=== PATIENT | female | born 1960 | race Two or more races ===

== ENCOUNTER 2019-12-28 15:07 | Inpatient (IN) | payer MEDICAID ==
[~2019-12-28] VITALS: Ht 165.1 cm; Wt 112.0 kg
[2019-12-28] MEDS ORDERED: ACETAMINOPHEN 325MG TABLET PO STA (15:40)
[2019-12-28] MEDS ORDERED: SODIUM CHLORIDE 0.9% 1,000 ML IV ONE ×2 (15:45→19:45)
[2019-12-28] MEDS ORDERED: PIPERACILLIN/TAZ 3.375G PREMIX 50 ML IV ONE (16:30)
[2019-12-28] MEDS ORDERED: DEXAMETHASONE 10 MG/ML VIAL IV ONE (16:30)
[2019-12-28 16:38] LABS: CHLORIDE 99 mEq/L (98-107)
[2019-12-28 16:43] LABS: BASOPHILS % 0.2 % (0.0-2.0); HEMATOCRIT. 39.2 % (36.0-48.0); HEMOGLOBIN. 13.7 g/dL (12.0-16.0); MEAN CORPUSCULAR HEMOGLOBIN 30.4 pg (28.0-32.0); MEAN CORPUSCULAR VOLUME 86.7 fL (81.0-99.0); MEAN PLATELET VOLUME 7.5 fl (7.4-10.4); MONOCYTES % 9.3 % (2.0-8.0); NEUTROPHILS % 82.5 % (40.0-76.0); PLATELET 337 x1000/uL (130-400); RED BLOOD CELL COUNT 4.53 mill/uL (4.2-5.4); RED CELL DISTRIBUTION WIDTH 12.8 % (11.6-14.6)
[2019-12-28 16:46] LABS: D-DIMER 1.12 mg/L FEU (<0.50); PROTHROMBIN TIME 10.3 sec (9.6-11.0)
[2019-12-28] MEDS ORDERED: BACITRACIN ZINC OINT UDPKT TOP ONE (17:15)
[2019-12-28] MEDS ORDERED: DOCUSATE SODIUM 100MG CAPSULE PO PRN (20:45)
[2019-12-28] MEDS ORDERED: ONDANSETRON HCL 4MG/2ML INJ IV PRN (20:45)
[2019-12-28] MEDS ORDERED: IPRATROPIUM/ALBUTEROL 0.5-3(2.5)MG/3ML NEB NEB PRN (20:45)
[2019-12-28] MEDS ORDERED: MAGNESIUM/ALUMINUM HYDROXIDE/SIMETHICONE 30ML UDC PO PRN (20:45)
[2019-12-28] MEDS ORDERED: HYDROCODONE/ACETAMINOPHEN 10/325MG TABLET PO PRN (20:45)
[2019-12-28] MEDS ORDERED: CLONIDINE 0.1MG TABLET PO PRN (20:45)
[2019-12-28] MEDS ORDERED: CEFTRIAXONE 1 G PREMIX 50 ML IV SCH (21:00)
[2019-12-28] MEDS ORDERED: AZITHROMYCIN 500 MG in DEXT 5% WATER 250 ML IV SCH (21:00)
[2019-12-28] MEDS ORDERED: HEPARIN 5000 UNITS/ML VIAL SUBCUT SCH (21:00)
[2019-12-28 22:09] LABS: HEPATITIS A AB IGM NEGATIVE (NEGATIVE)
[2019-12-28] MEDS: HEPARIN 5000 UNITS/ML VIAL SUBCUT SCH (22:53)
[2019-12-28 23:13] LABS: HEPATITIS B SURFACE ANTIGEN REACTIVE PEND CONFIR
[2019-12-28 23:17] LABS: CREATINE KINASE MB FRACTION 8.2 ng/mL (0.5-3.6)
[2019-12-29 04:49] LABS: CHLORIDE 104 mEq/L (98-107)
[2019-12-29 04:52] LABS: BASOPHILS % 0.7 % (0.0-2.0); HEMATOCRIT. 39.3 % (36.0-48.0); HEMOGLOBIN. 13.3 g/dL (12.0-16.0); LYMPHOCYTES % 8.4 % (20.0-50.0); MEAN CORPUSCULAR HEMOGLOBIN 29.8 pg (28.0-32.0); MEAN CORPUSCULAR VOLUME 88.4 fL (81.0-99.0); MEAN PLATELET VOLUME 7.4 fl (7.4-10.4); NEUTROPHILS % 86.9 % (40.0-76.0); PLATELET 328 x1000/uL (130-400); RED BLOOD CELL COUNT 4.45 mill/uL (4.2-5.4); RED CELL DISTRIBUTION WIDTH 12.8 % (11.6-14.6)
[2019-12-29 04:56] LABS: LDL CHOLESTEROL 106 mg/dL (5-100)
[2019-12-29 04:57] LABS: HDL CHOLESTEROL 41 mg/dL (40-59)
[2019-12-29 05:00] LABS: CREATINE KINASE MB FRACTION 14.5 ng/mL (0.5-3.6)
[2019-12-29 05:09] LABS: CREATINE KINASE 1350 IU/L (26-192)
[2019-12-29] MEDS: HEPARIN 5000 UNITS/ML VIAL SUBCUT SCH ×3 (07:03→21:46)
[2019-12-29 08:30] VITALS: BP 113/58
[2019-12-29 09:00] VITALS: BP 111/58
[2019-12-29] MEDS: PANTOPRAZOLE 40MG DR TABLET PO SCH (10:11)
[2019-12-29] MEDS ORDERED: POTASSIUM CHLORIDE 20MEQ TABLET SR PO NR (10:15)
[2019-12-29] MEDS ORDERED: LISI-186 PO (10:50)
[2019-12-29] MEDS ORDERED: HYDR25TA PO (10:51)
[2019-12-29] MEDS ORDERED: ATEN-42 PO (10:53)
[2019-12-29] MEDS ORDERED: MECL-183 PO (10:56)
[2019-12-29] MEDS ORDERED: CHOL200077 MT (10:56)
[2019-12-29] MEDS ORDERED: GABA-531 PO (10:56)
[2019-12-29] MEDS ORDERED: ACET650T37 PO (10:58)
[2019-12-29] MEDS ORDERED: CHOL40002 PO (11:00)
[2019-12-29] MEDS: SODIUM CHLORIDE 0.9% 1,000 ML IV SCH ×3 (11:34→22:17)
[2019-12-29 11:52] LABS: BG BASE EXCESS -3.7 mmol/L (-2.0-2.0); BG CARBOXYHEMOGLOBIN 0.4 % (0.5-1.5); BG DEOXYHEMOGLOBIN 12.3 % (0.0-5.0); BG FRACTION INSPIRED OXYGEN 21; BG HCO3 ACT 18.8 mmol/L (22.0-26.0); BG METHEMOGLOBIN 0.2 % (0.0-1.5); BG OXYGEN SATURATION 87.6 % (92.0-98.5); BG OXYHEMOGLOBIN 87.1 % (94.0-97.0); BG PCO2 27.3 mmHg (35.0-45.0); BG PH 7.455 (7.350-7.450); BG PO2 53.9 mmHg (75.0-100.0); BG SAMPLE SITE RIGHT RADIAL; BG TOTAL HEMOGLOBIN 13.8 g/dL (12.0-18.0); BG VENT MODE ROOM AIR
[2019-12-29 12:00] VITALS: BP 110/46
[2019-12-29] MEDS: AZITHROMYCIN 500 MG in DEXT 5% WATER 250 ML IV SCH (15:00)
[2019-12-29 16:00] VITALS: BP 102/65
[2019-12-29] MEDS: CEFTRIAXONE 1,000 MG in DEXTROSE 5% WATER 50 ML IV SCH (18:23)
[2019-12-29] MEDS: DEXAMETHASONE 10 MG/ML VIAL IV SCH (18:23)
[2019-12-29 19:11] LABS: CREATINE KINASE 1184 IU/L (26-192)
[2019-12-29 20:00] VITALS: BP 96/49
[2019-12-29] MEDS ORDERED: *PATIENT'S OWN MEDICATION STORAGE XX SCH (21:45)
[2019-12-29] MEDS: GUAIFENESIN 200MG/10ML SUGAR FREE UDC PO PRN (23:45)
[2019-12-30] VITALS: BP_SYST 91; BP_DIAS 32; BP_DIAS 52
[2019-12-30 04:00] VITALS: BP 115/54
[2019-12-30] MEDS: HEPARIN 5000 UNITS/ML VIAL SUBCUT SCH ×3 (05:45→20:45)
[2019-12-30] MEDS: PANTOPRAZOLE 40MG DR TABLET PO SCH (05:45)
[2019-12-30 07:43] LABS: HEMATOCRIT. 37.3 % (36.0-48.0); HEMOGLOBIN. 12.8 g/dL (12.0-16.0); MEAN CORPUSCULAR HEMOGLOBIN 30.1 pg (28.0-32.0); MEAN CORPUSCULAR VOLUME 87.4 fL (81.0-99.0); MEAN PLATELET VOLUME 7.4 fl (7.4-10.4); PLATELET 384 x1000/uL (130-400); RED BLOOD CELL COUNT 4.26 mill/uL (4.2-5.4); RED CELL DISTRIBUTION WIDTH 12.9 % (11.6-14.6)
[2019-12-30 08:00] VITALS: BP 107/71
[2019-12-30 08:07] LABS: HBSAG SCREEN Negative (Negative); HIV SCREEN 4G Non Reactive (Non Reactive)
[2019-12-30] MEDS: DEXAMETHASONE 10 MG/ML VIAL IV SCH (09:06)
[2019-12-30 09:10] LABS: CHLORIDE 110 mEq/L (98-107)
[2019-12-30 09:20] LABS: PHOSPHORUS 3.9 mg/dL (2.5-4.9)
[2019-12-30 12:00] VITALS: BP 130/55
[2019-12-30] MEDS: CEFTRIAXONE 1,000 MG in DEXTROSE 5% WATER 50 ML IV SCH (12:27)
[2019-12-30] MEDS: SODIUM CHLORIDE 0.9% 1,000 ML IV SCH ×2 (12:27→20:44)
[2019-12-30] MEDS ORDERED: POTASSIUM CHLORIDE 20MEQ TABLET SR PO NR (12:30)
[2019-12-30] MEDS: AZITHROMYCIN 500 MG in DEXT 5% WATER 250 ML IV SCH (13:51)
[2019-12-30 15:03] LABS: PLATELET ESTIMATE NORMAL
[2019-12-30 16:00] VITALS: BP 122/68
[2019-12-30 20:00] VITALS: BP 104/44
[2019-12-31] VITALS: BP 109/62
[2019-12-31 04:00] VITALS: BP 113/62
[2019-12-31] MEDS: HEPARIN 5000 UNITS/ML VIAL SUBCUT SCH ×3 (06:36→21:48)
[2019-12-31 08:00] VITALS: BP 123/75
[2019-12-31 08:41] LABS: HEMATOCRIT. 37.8 % (36.0-48.0); HEMOGLOBIN. 12.9 g/dL (12.0-16.0); MEAN CORPUSCULAR HEMOGLOBIN 29.9 pg (28.0-32.0); MEAN CORPUSCULAR VOLUME 87.9 fL (81.0-99.0); PLATELET 442 x1000/uL (130-400); RED BLOOD CELL COUNT 4.31 mill/uL (4.2-5.4)
[2019-12-31] MEDS: DEXAMETHASONE 10 MG/ML VIAL IV SCH (09:45)
[2019-12-31] MEDS: FAMOTIDINE 20MG TABLET PO SCH (10:07)
[2019-12-31] MEDS ORDERED: POTASSIUM CHLORIDE 20MEQ TABLET SR PO NR (11:15)
[2019-12-31 12:00] VITALS: BP 140/77
[2019-12-31] MEDS: SODIUM CHLORIDE 0.45% 1,000 ML IV SCH (12:12)
[2019-12-31] MEDS: CEFTRIAXONE 1,000 MG in DEXTROSE 5% WATER 50 ML IV SCH (12:12)
[2019-12-31] MEDS: AZITHROMYCIN 500 MG TABLET PO SCH (14:03)
[2019-12-31 15:10] LABS: ANTI-NUCLEAR ANTIBODIES DIRECT Negative (Negative)
[2019-12-31 16:00] VITALS: BP 117/68
[2019-12-31 17:07] LABS: *AMPHETAMINES SCREEN URINE NEGATIVE (NEGATIVE); *BARBITURATES SCREEN URINE NEGATIVE (NEGATIVE); *BENZODIAZEPINES SCREEN URINE NEGATIVE (NEGATIVE); *COCAINE SCREEN URINE NEGATIVE (NEGATIVE); CLARITY URINE CLEAR (CLEAR); COLOR URINE YELLOW (YELLOW); KETONES URINE NEGATIVE (NEGATIVE); LEUKOCYTE ESTERASE URINE NEGATIVE (NEGATIVE); METHADONE URINE SCREEN NEGATIVE (NEGATIVE); NITRITE URINE NEGATIVE (NEGATIVE); OCCULT BLOOD URINE 1+ (NEGATIVE); OPIATES URINE SCREEN NEGATIVE (NEGATIVE); PH URINE 5.5 (4.5-8.0); PROTEIN URINE 3+ (NEGATIVE); SPECIFIC GRAVITY URINE 1.019 (1.005-1.030); UROBILINOGEN URINE 0.2 E.U./dL (0.2-1.0)
[2019-12-31 17:08] LABS: CANNABINOID URINE SCREEN NEGATIVE (NEGATIVE); PHENCYCLIDINE URINE SCREEN NEGATIVE (NEGATIVE)
[2019-12-31 17:14] LABS: PLATELET ESTIMATE INCREASED
[2019-12-31 20:00] VITALS: BP 112/63
[2020-01-01] VITALS: BP 129/68
[2020-01-01] MEDS: SODIUM CHLORIDE 0.45% 1,000 ML IV SCH (03:44)
[2020-01-01 04:00] VITALS: BP 117/77
[2020-01-01] MEDS: HEPARIN 5000 UNITS/ML VIAL SUBCUT SCH ×3 (05:54→22:36)
[2020-01-01 07:03] LABS: HEMATOCRIT. 38.9 % (36.0-48.0); HEMOGLOBIN. 13.4 g/dL (12.0-16.0); MEAN CORPUSCULAR HEMOGLOBIN 29.9 pg (28.0-32.0); MEAN CORPUSCULAR VOLUME 86.9 fL (81.0-99.0); MEAN PLATELET VOLUME 6.9 fl (7.4-10.4); PLATELET 504 x1000/uL (130-400); RED BLOOD CELL COUNT 4.48 mill/uL (4.2-5.4)
[2020-01-01 07:29] LABS: PHOSPHORUS 2.7 mg/dL (2.5-4.9)
[2020-01-01] MEDS ORDERED: POTASSIUM CHLORIDE 20MEQ TABLET SR PO NR (07:45)
[2020-01-01 08:00] VITALS: BP 125/59
[2020-01-01] MEDS: AZITHROMYCIN 500 MG TABLET PO SCH (08:07)
[2020-01-01] MEDS: DEXAMETHASONE 10 MG/ML VIAL IV SCH (08:07)
[2020-01-01] MEDS: FAMOTIDINE 20MG TABLET PO SCH (08:07)
[2020-01-01 11:17] LABS: NUCLEATED RED BLOOD CELLS 1 /100 WBC; PLATELET ESTIMATE INCREASED
[2020-01-01 12:00] VITALS: BP 129/74
[2020-01-01] MEDS: CEFTRIAXONE 1,000 MG in DEXTROSE 5% WATER 50 ML IV SCH (13:08)
[2020-01-01 16:00] VITALS: BP 131/59
[2020-01-01 20:47] VITALS: BP 114/46
[2020-01-02 00:30] VITALS: BP 127/92
[2020-01-02 04:00] VITALS: BP 153/78
[2020-01-02] MEDS: HEPARIN 5000 UNITS/ML VIAL SUBCUT SCH ×3 (05:37→21:23)
[2020-01-02 07:20] LABS: HEMATOCRIT. 40.8 % (36.0-48.0); HEMOGLOBIN. 13.7 g/dL (12.0-16.0); MEAN CORPUSCULAR HEMOGLOBIN 29.5 pg (28.0-32.0); MEAN CORPUSCULAR VOLUME 88.1 fL (81.0-99.0); PLATELET 543 x1000/uL (130-400); RED BLOOD CELL COUNT 4.63 mill/uL (4.2-5.4); RED CELL DISTRIBUTION WIDTH 13.1 % (11.6-14.6)
[2020-01-02 08:00] VITALS: BP 111/76
[2020-01-02 08:08] LABS: PHOSPHORUS 2.9 mg/dL (2.5-4.9)
[2020-01-02 09:46] LABS: NUCLEATED RED BLOOD CELLS 1 /100 WBC; PLATELET ESTIMATE INCREASED
[2020-01-02] MEDS: DEXAMETHASONE 10 MG/ML VIAL IV SCH (10:00)
[2020-01-02] MEDS: FAMOTIDINE 20MG TABLET PO SCH (10:00)
[2020-01-02 12:00] VITALS: BP 127/64
[2020-01-02 16:00] VITALS: BP 116/62
[2020-01-02 20:00] VITALS: BP 130/63
[2020-01-03] VITALS: BP 133/67
[2020-01-03 04:00] VITALS: BP 122/70
[2020-01-03] MEDS: HEPARIN 5000 UNITS/ML VIAL SUBCUT SCH ×3 (05:07→21:53)
[2020-01-03 06:54] LABS: HEMOGLOBIN. 12.7 g/dL (12.0-16.0); MEAN CORPUSCULAR HEMOGLOBIN 29.2 pg (28.0-32.0); MEAN CORPUSCULAR VOLUME 87.4 fL (81.0-99.0); MEAN PLATELET VOLUME 6.7 fl (7.4-10.4); PLATELET 533 x1000/uL (130-400); RED BLOOD CELL COUNT 4.35 mill/uL (4.2-5.4); RED CELL DISTRIBUTION WIDTH 12.7 % (11.6-14.6)
[2020-01-03 08:00] VITALS: BP 123/71
[2020-01-03] MEDS: FAMOTIDINE 20MG TABLET PO SCH (08:04)
[2020-01-03] MEDS: DEXAMETHASONE 10 MG/ML VIAL IV SCH (08:04)
[2020-01-03 12:00] VITALS: BP_SYST 121; BP_SYST 126; BP_DIAS 71; BP_DIAS 76
[2020-01-03 14:16] LABS: NUCLEATED RED BLOOD CELLS 1 /100 WBC
[2020-01-03 14:17] LABS: PLATELET ESTIMATE INCREASED
[2020-01-03 16:00] VITALS: BP 126/76
[2020-01-03 20:00] VITALS: BP 120/95
[2020-01-04] VITALS: BP 148/83
[2020-01-04 04:00] VITALS: BP 150/60
[2020-01-04] MEDS: HEPARIN 5000 UNITS/ML VIAL SUBCUT SCH ×3 (05:18→21:16)
[2020-01-04 08:00] VITALS: BP 142/74
[2020-01-04 08:10] LABS: BASOPHILS % 0.1 % (0.0-2.0); EOSINOPHILS % 0.1 % (0.0-5.0); HEMATOCRIT. 39.9 % (36.0-48.0); HEMOGLOBIN. 13.5 g/dL (12.0-16.0); LYMPHOCYTES % 9.4 % (20.0-50.0); MEAN CORPUSCULAR HEMOGLOBIN 29.7 pg (28.0-32.0); MEAN CORPUSCULAR VOLUME 87.8 fL (81.0-99.0); MEAN PLATELET VOLUME 6.7 fl (7.4-10.4); MONOCYTES % 7.7 % (2.0-8.0); NEUTROPHILS % 82.7 % (40.0-76.0); PLATELET 516 x1000/uL (130-400); RED BLOOD CELL COUNT 4.54 mill/uL (4.2-5.4); RED CELL DISTRIBUTION WIDTH 12.7 % (11.6-14.6)
[2020-01-04] MEDS: FAMOTIDINE 20MG TABLET PO SCH (08:10)
[2020-01-04] MEDS: DEXAMETHASONE 10 MG/ML VIAL IV SCH (08:10)
[2020-01-04 12:00] VITALS: BP 151/63
[2020-01-04 16:00] VITALS: BP 142/82
[2020-01-04 20:00] VITALS: BP 115/64
[2020-01-05] VITALS: BP 136/63
[2020-01-05 04:00] VITALS: BP 115/70
[2020-01-05] MEDS: HEPARIN 5000 UNITS/ML VIAL SUBCUT SCH ×3 (05:56→20:49)
[2020-01-05 07:01] LABS: BASOPHILS % 0.2 % (0.0-2.0); EOSINOPHILS % 0.1 % (0.0-5.0); HEMATOCRIT. 40.9 % (36.0-48.0); HEMOGLOBIN. 13.6 g/dL (12.0-16.0); LYMPHOCYTES % 8.4 % (20.0-50.0); MEAN CORPUSCULAR HEMOGLOBIN 29.6 pg (28.0-32.0); MEAN PLATELET VOLUME 6.9 fl (7.4-10.4); MONOCYTES % 8.8 % (2.0-8.0); NEUTROPHILS % 82.5 % (40.0-76.0); PLATELET 460 x1000/uL (130-400); RED CELL DISTRIBUTION WIDTH 12.7 % (11.6-14.6)
[2020-01-05 07:10] LABS: CHLORIDE 116 mEq/L (98-107)
[2020-01-05 08:00] VITALS: BP 113/62
[2020-01-05] MEDS: DEXAMETHASONE 10 MG/ML VIAL IV SCH (08:59)
[2020-01-05] MEDS: FAMOTIDINE 20MG TABLET PO SCH (08:59)
[2020-01-05 12:00] VITALS: BP 115/59
[2020-01-05 16:00] VITALS: BP 157/74
[2020-01-05] MEDS ORDERED: FUROSEMIDE 40MG/4ML VIAL IVP NR (16:00)
[2020-01-05 20:00] VITALS: BP 133/68
[2020-01-05] MEDS: GUAIFENESIN 200MG/10ML SUGAR FREE UDC PO PRN (20:49)
[2020-01-06] VITALS: BP 116/58
[2020-01-06 04:00] VITALS: BP 117/41
[2020-01-06] MEDS: HEPARIN 5000 UNITS/ML VIAL SUBCUT SCH ×3 (06:05→21:39)
[2020-01-06 06:44] LABS: BASOPHILS % 0.5 % (0.0-2.0); EOSINOPHILS % 0.1 % (0.0-5.0); HEMATOCRIT. 39.2 % (36.0-48.0); HEMOGLOBIN. 13.2 g/dL (12.0-16.0); LYMPHOCYTES % 9.3 % (20.0-50.0); MEAN CORPUSCULAR HEMOGLOBIN 29.8 pg (28.0-32.0); MEAN CORPUSCULAR VOLUME 88.3 fL (81.0-99.0); MEAN PLATELET VOLUME 6.7 fl (7.4-10.4); MONOCYTES % 8.1 % (2.0-8.0); PLATELET 414 x1000/uL (130-400); RED BLOOD CELL COUNT 4.44 mill/uL (4.2-5.4); RED CELL DISTRIBUTION WIDTH 13.1 % (11.6-14.6)
[2020-01-06 06:58] LABS: CHLORIDE 114 mEq/L (98-107)
[2020-01-06 08:00] VITALS: BP 100/59
[2020-01-06] MEDS: FAMOTIDINE 20MG TABLET PO SCH (09:00)
[2020-01-06] MEDS: DEXAMETHASONE 4MG TABLET PO SCH (09:55)
[2020-01-06 12:00] VITALS: BP 104/63
[2020-01-06 16:00] VITALS: BP 107/57
[2020-01-06 20:00] VITALS: BP 114/59
[2020-01-07] VITALS: BP 118/70
[2020-01-07 04:00] VITALS: BP 100/55
[2020-01-07] MEDS: HEPARIN 5000 UNITS/ML VIAL SUBCUT SCH ×2 (05:23→14:00)
[2020-01-07 06:22] LABS: BASOPHILS % 0.3 % (0.0-2.0); EOSINOPHILS % 0.1 % (0.0-5.0); HEMATOCRIT. 37.9 % (36.0-48.0); HEMOGLOBIN. 12.8 g/dL (12.0-16.0); LYMPHOCYTES % 9.2 % (20.0-50.0); MEAN CORPUSCULAR HEMOGLOBIN 29.8 pg (28.0-32.0); MEAN CORPUSCULAR VOLUME 88.4 fL (81.0-99.0); MEAN PLATELET VOLUME 7.1 fl (7.4-10.4); MONOCYTES % 7.8 % (2.0-8.0); NEUTROPHILS % 82.6 % (40.0-76.0); PLATELET 407 x1000/uL (130-400); RED BLOOD CELL COUNT 4.28 mill/uL (4.2-5.4); RED CELL DISTRIBUTION WIDTH 13.2 % (11.6-14.6)
[2020-01-07 08:00] VITALS: BP 105/58
[2020-01-07] MEDS: DEXAMETHASONE 4MG TABLET PO SCH (08:48)
[2020-01-07] MEDS: FAMOTIDINE 20MG TABLET PO SCH (08:48)
[2020-01-07 12:00] VITALS: BP 114/72
[2020-01-07 14:19] VITALS: BP 105/58
== END 2020-01-07 16:40 | disposition home or self-care (01) | DRG 720 ==
LOC: ER 15:07 → 7EST 19:40 → EDBEDREQTM 19:51 → EDBEDREQ 19:51 → ENRESERV 12-29 07:37 → 7EST 01-05 10:48 → 7WST 01-05 18:53
PROVIDERS: ADMIT Internal Medicine; ATTEND Internal Medicine
PROC: XW033E5 Introduction of Remdesivir Anti-infective into Peripheral Vein, Percutaneous Approach, New Technology Group 5 (ICD-10-PCS; principal; 2019-12-29)
DX: A41.89 Other specified sepsis (principal); U07.1 COVID-19; J96.01 Acute respiratory failure with hypoxia; B18.1 Chronic viral hepatitis B without delta-agent; E44.0 Moderate protein-calorie malnutrition; E66.01 Morbid (severe) obesity due to excess calories; E87.1 Hypo-osmolality and hyponatremia; E87.2 Acidosis; E87.6 Hypokalemia; J12.89 Other viral pneumonia; K76.0 Fatty (change of) liver, not elsewhere classified; M62.82 Rhabdomyolysis; N17.9 Acute kidney failure, unspecified; N18.9 Chronic kidney disease, unspecified; I51.7 Cardiomegaly; E86.0 Dehydration; N28.1 Cyst of kidney, acquired; R73.03 Prediabetes; I12.9 Hypertensive chronic kidney disease with stage 1 through stage 4 chronic kidney disease, or unspecified chronic kidney disease; Z68.41 Body mass index [BMI] 40.0-44.9, adult; A08.39 Other viral enteritis; B19.20 Unspecified viral hepatitis C without hepatic coma
CPT/HCPCS: 36415; 36600; 71045; 76770; 80048; 80053; 80061; 80305; 81003; 82375; 82550; 82553; 82728; 82805; 83036; 83605; 83615; 83735; 83880; 84100; 84145; 84443; 84484; 85025; 85379; 85384; 85651; 86038; 86140; 86160; 86705; 86709; 86803; 87340; 87389; 87635; 93005; 96365; 99291; J0456; J0696; J1100; J1644; J1940; J2543; J7030; J7040; J7060; J8540

== ENCOUNTER 2023-10-08 11:12 | Emergency (ER) | payer MEDICAID ==
[~2023-10-08] VITALS: Ht 170.2 cm; Wt 121.0 kg
[~2023-10-08 11:12] MED LIST: ACET-3163 PO; ATEN-42 PO; CHOL40002 PO; GABA-532 PO; HYDR25TA PO; LISI-186 PO; MECL-217 PO
[2023-10-08 11:22] VITALS: O2SAT 98
[2023-10-08 13:27] LABS: HEMATOCRIT. 35.3 % (36.0-48.0); HEMOGLOBIN. 12.1 g/dL (12.0-16.0); MEAN CORPUSCULAR HGB CONC 34.4 g/dL (31.0-37.0); MEAN CORPUSCULAR VOLUME 90.1 fL (81.0-99.0); MEAN PLATELET VOLUME 7.1 fl (7.4-10.4); PLATELET 258 x1000/uL (130-400); RED BLOOD CELL COUNT 3.92 mill/uL (4.2-5.4); WHITE BLOOD COUNT 14.1 x1000/uL (4.5-11.0)
[2023-10-08 13:28] LABS: CHLORIDE 107 mEq/L (98-107); POTASSIUM 3.3 mEq/L (3.5-5.1); SODIUM 139 mEq/L (136-145)
[2023-10-08 13:29] LABS: CALCIUM 9.4 mg/dL (8.7-10.4); CARBON DIOXIDE 26 mEq/L (21-32)
[2023-10-08 13:34] LABS: GLUCOSE 103 mg/dL (70-105); UREA NITROGEN BLOOD 13 mg/dL (9-23)
[2023-10-08 13:36] LABS: ALANINE AMINOTRANSFERASE 25 IU/L (10-49); ALBUMIN 4.1 g/dL (3.2-4.8); ASPARTATE AMINOTRANSFERASE 28 IU/L (<34); BILIRUBIN DIRECT 0.3 mg/dL (<=3.0)
[2023-10-08 13:37] LABS: BILIRUBIN TOTAL 0.9 mg/dL (0.1-1.0); PROTEIN TOTAL 7.6 g/dL (6.0-8.3)
[2023-10-08 13:43] LABS: DIFFERENTIAL COMMENT 1
[2023-10-08 14:19] LABS: PLATELET ESTIMATE NORMAL
[2023-10-08 14:30] LABS: CLARITY URINE CLOUDY (CLEAR); COLOR URINE DARK YELLOW (YELLOW); GLUCOSE URINE NEGATIVE (NEGATIVE); KETONES URINE TRACE (NEGATIVE); LEUKOCYTE ESTERASE URINE 2+ (NEGATIVE); NITRITE URINE POSITIVE (NEGATIVE); OCCULT BLOOD URINE 2+ (NEGATIVE); PH URINE 6.5 (4.5-8.0); PROTEIN URINE 1+ (NEGATIVE); SPECIFIC GRAVITY URINE 1.018 (1.005-1.030)
[2023-10-08] MEDS: ACETAMINOPHEN 500MG TABLET PO ONE (14:39)
[2023-10-08 14:45] LABS: BACTERIA URINE 3+; RBC URINE 0-2 /hpf (0-2); SQUAMOUS EPITHELIAL CELL URINE 3+ /lpf (RARE/1+); WBC URINE 50-100 /hpf (0-2); YEAST URINE NONE SEEN
[2023-10-08 15:57] LABS: THYROID STIMULATING HORMONE 1.07 uIU/mL (0.55-4.78)
[2023-10-08] MEDS: POTASSIUM CHLORIDE 20MEQ TABLET SR PO ONE (16:17)
[2023-10-08] MEDS ORDERED: CEPH500C2 MT (16:21)
[2023-10-08] MEDS: SODIUM CHLORIDE 0.9% 500 ML IV ONE (16:28)
[2023-10-08] MEDS: CEFTRIAXONE 1GM/50ML 50 ML IV ONE (16:28)
[2023-10-08 17:00] VITALS: BP 142/82; PULSE 92; RESP 16; TEMP 37.22520; O2SAT 98
== END 2023-10-08 17:15 | disposition home or self-care (01) ==
LOC: ER 11:26
DX: N12 Tubulo-interstitial nephritis, not specified as acute or chronic (principal); I10 Essential (primary) hypertension; Z98.890 Other specified postprocedural states; Z79.899 Other long term (current) drug therapy
CPT/HCPCS: 80076; 80048; 81003; 82550; 83690; 84443; 85025; 87086; 87186; 87077; 36415; 71045; 96374; 99284; J0696; J7040; Z7610